=== PATIENT | male | born 1990 | race Caucasian/White ===

== ENCOUNTER 2020-04-03 15:37 | Emergency (ER) | payer SELFPAY ==
[2020-04-03 15:50] VITALS: BP 177/115; PULSE 72; RESP 18; TEMP 37.3; O2SAT 100
--- NOTE | 2020-04-03 16:16 | ED.GENADULT ---
HPI - General Adult General Chief complaint: Dental/Oral Stated complaint: toothache Source: patient and RN notes reviewed Mode of arrival: ambulatory Limitations: no limitations History of Present Illness HPI narrative: 29-year-old male presents with complaints of left lower dental pain for the past 3 days. THC and ETOH with some relief, short term. Denies any drainage. No fever. No jaw swelling. No neck swelling. No limitation with speaking or swallowing. Has history of dental caries. No dental trauma. No oral lesions. Exacerbating factors consist of eating and drinking cold items. Relieving factors not eating on LT side and avoiding cold items. No dentures or bridges. The patient reports he have not been diagnosed with COVID-19. The patient reports he is not waiting for the results of a COVID-19 lab test. The patient reports he do not have fever, chills, weakness, fatigue, myalgia, or facial swelling. The patient reports he do not have a new or worsening cough or shortness of breath. Denies chest pain. The patient reports he do not have any rhinorrhea, congestion, sore throat, nausea, vomiting, abdominal pain, and diarrhea. Tolerating po intake well. Denies recent traveling. Denies concerns for COVID-19 or exposures been home since [id number] order except for essential household needs, working, and return home. At this time, patient is not suspected of having COVID-19. Some parts of this dictation were generated by voice recognition software and may contain typographical and/or grammatical inaccuracies. Related Data Allergies Allergy/AdvReac Type Severity Reaction Status Date / Time No Known Allergies Allergy Unverified 02/06/17 12:58 Review of Systems Review of Systems: Narrative: CONSTITUTIONAL: Denies fever, chills, sweats. EYES: Denies visual changes, redness, discharge. ENT: Denies rhinorrhea, congestion, sore throat, otalgia. Complains of LT lower dental pain. CARDIOVASCULAR: Denies chest pain, palpitations, edema. RESPIRATORY: Denies dyspnea, wheezing, cough. GASTROINTESTINAL: Denies abdominal pain, nausea, vomiting, diarrhea. GENITOURINARY: Denies dysuria, hematuria, abnormal discharge. SKIN: Denies rash or itching. MUSCULOSKELETAL: Denies acute back pain, joint pain, or myalgia. NEUROLOGIC: Denies numbness or focal weakness. PSYCHIATRIC: Denies anxiety or depression. All systems reviewed & are unremarkable except as noted in HPI and below. [facility] Past Medical History Medical History (Updated 04/04/20 @ 00:01 by Ester Correa) Asthma Surgical History Surgical History (Updated 04/03/20 @ 16:24 by ALISON Mejía) No significant past surgical history Family History Family History (Updated 04/03/20 @ 16:24 by ALISON Mejía) Father Cerebrovascular accident Acute myocardial infarction Mother No problems noted. Social History Social History (Updated 04/03/20 @ 16:25 by ALISON Mejía) Smoking status: Former smoker Second hand tobacco smoke exposure: Yes Smoking end date: 10/31/16 Alcohol intake: current Substance use: current Substance use type: marijuana Living arrangements: with family Occupation/Education: occupation Gender identity (if verbalized by the patient): Male Comments At time of signature, agree with nurse past medical, surgical, social, and family history. There is no relevant family history pertinent to the presenting complaint. Exam Narrative: Exam Narrative: GENERAL: This is a well-nourished, well-developed patient, in no apparent distress. Talks in full sentences ans ambulates with steady gait without dyspnea. HEAD: normocephalic, atraumatic. EYES: PERRL. Sclera clear/white. Vision is grossly intact. EARS: External ears normal, auditory canals clear and without drainage, TMs normal without perforation. Hearing grossly intact. NOSE: External nose normal with no obvious nasal discharge, nares without
== END 2020-04-03 16:30 | disposition home or self-care (01) ==
PROVIDERS: Emergency Provider Nurse Practitioner Family
DX: K02.9 Dental caries, unspecified (principal); J45.909 Unspecified asthma, uncomplicated; Z87.891 Personal history of nicotine dependence
CPT/HCPCS: 99213; G0463